=== PATIENT | male | born 1955 | race Caucasian/White ===

== ENCOUNTER 2017-01-14 15:03 | Inpatient (IN) | payer OTHER, MEDICARE, MEDICAID ==
[~2017-01-14] VITALS: Ht 167.6 cm; Wt 73.3 kg
--- NOTE | 2017-01-14 15:12 | NUR ---
Patient arrives to room [address] Gonsalez' office. Reports abdominal pain but is unable to rate. Ambulates to weight chair then bed with 1 assist. Patient's sister, Zora Holguin, who is his guardian is at bedside and conveys medical history. See admission for full assessment.
[2017-01-14] MEDS ORDERED: ONDANSETRON 2 MG/ML (Z0FRAN) 2 ML VIAL IV PRN (15:45)
[2017-01-14] MEDS ORDERED: BISACODYL 10 MG SUPP (DULCOLAX) PR PRN (15:45)
[2017-01-14] MEDS ORDERED: LORazepam 2 MG/ML (ATIVAN) 1 ML VIAL IV PRN (15:45)
[2017-01-14] MEDS ORDERED: PROMETHAZINE HCL INJ 25 MG in SODIUM CHLORIDE 25 ML IV PRN (15:45)
[2017-01-14] MEDS ORDERED: ARTIFICIAL TEARS (REFRESH) OPHTHALMIC DROPS OU PRN (15:45)
[2017-01-14] MEDS ORDERED: ALBUTEROL 0.083% NEB SOLUTION 2.5 MG/3 ML VIAL INH PRN (15:45)
[2017-01-14] MEDS ORDERED: SCOPOLAMINE 1.5 MG (TRANSDERM-SCOP) PATCH TD SCH (16:00)
[2017-01-14] MEDS ORDERED: morphine INJ 10 MG/ML 1 ML VIAL IV PRN (16:00)
[2017-01-14] MEDS ORDERED: NS FLUSH 3 ML PRN IV (16:05)
[2017-01-14] MEDS ORDERED: NS FLUSH 10 ML PRN IV (16:05)
[2017-01-14] MEDS ORDERED: ONDANSETRON 4 MG (ZOFRAN) TABLET PO PRN (16:15)
[2017-01-14] MEDS: morphine ORAL CONC 20 MG/ML (ROXANOL) 1 ML SYRINGE PO PRN (16:20)
--- NOTE | 2017-01-14 16:20 | NUR ---
PRN Ativan provided due to increased agitation and anxiety. Dr. Horne in room and attempting paracentesis. Patient's sister at bedside and provides positive reassurance. Will continue to monitor.
[2017-01-14] MEDS ORDERED: LORazepam ORAL CONCENTRATE 2 MG/ML (ATIVAN) SYR PO PRN (16:25)
[2017-01-14] MEDS ORDERED: ONDANSETRON 4 MG (ZOFRAN) ORAL DISSOLVE TAB PO PRN (16:25)
--- NOTE | 2017-01-14 16:25 | NUR ---
HOB elevated, Pt swallowed Zofran 4mg 2 tabs whole with sip of water without difficulty. Sister, Zora Holguin was at bedside. Pt started moaning after swallowing pills, then HOB lowered and he stopped moaning.
[2017-01-14 16:26] VITALS: BP 110/71
--- NOTE | 2017-01-14 16:54 | NUR ---
MED REC COMPLETE--current med list obtained from list provided by [facility] ([facility] [place]).
[2017-01-14] MEDS ORDERED: ACETAMINOPHEN 325 MG TAB (TYLENOL) PO PRN (17:15)
[2017-01-14] MEDS ORDERED: ACETAMINOPHEN 650 MG SUPP (TYLENOL) PR PRN (17:15)
--- NOTE | 2017-01-14 18:14 | NUR ---
Patient sleeping in bed. [facility] nurse Riya Vargas RN here. No apparent signs of pain or distress. Will continue to monitor.
--- NOTE | 2017-01-14 19:25 | NUR ---
Pt. resting quietly; resp are even and unlabored; distended abdomen noted; bed alarm on for safety. Pt. appears to be in no distress currently. Will continue to monitor.
--- NOTE | 2017-01-14 20:57 | NUR ---
Pt comfortably sleeping, no PRN interventions indicated
[2017-01-15] MEDS: morphine ORAL CONC 20 MG/ML (ROXANOL) 1 ML SYRINGE PO PRN ×2 (00:01→07:11)
--- NOTE | 2017-01-15 00:01 | NUR ---
Roxanol 10 mg PO given for facial expression of discomfort; general restlessness. Resp are even and unlabored on room air; abd. firm and distended; bed alarm on for safety.
--- NOTE | 2017-01-15 04:49 | NUR ---
Pt. checked for incontinence; pt. dry. Pt. responds with opening eyes or turning head when spoken to; appears to be in no distress currently; resp are even and unlabored on room air; bed alarm on for safety.
--- NOTE | 2017-01-15 07:15 | NUR ---
Roxanol 20 mg PO given for pain; pt. woke up suddenly-shouting and moaning. Warm blanket provided for comfort as pt. sat at bedside. Pt. pivots with assist x 2 and use of gait belt to bedside commode; heavy incontinent void plus 200 cc's measured output. Abdomen remains very distended. Pt. anxious; much reassurance given by this RN and oncoming R[facility]. Bed and pressure alarm on for safety.
--- NOTE | 2017-01-15 07:30 | NUR ---
Pt. resting much quieter at this time; cartoons on tv; resp are even and unlabored on room air.
--- NOTE | 2017-01-15 08:04 | NUR ---
NUTRITION ASSESSMENT Level 1 Patient: Osito Quigley Age/Sex: 62/M Date Screened: 01-15-17 Weight: 161.2#/73.3 kg Height: 66 inches Primary Diagnosis: liver failure Diet Order: mechanical soft Relevant labs: N/A Food allergies: N Nutrition Assessment Criteria Age over 80: N Body Mass Index (BMI) under 19: N Admission Screening Indicates Risk? 3 points Moderate/High Risk Diagnosis: 6 points TPN or PPN: N NPO or clear liquid diet: N Serum Glucose <70 or >180: N/A Hgb A1c >6.7: N/A Total: 9 points Risk Screen: __ Patient at low nutritional risk based on available data; reevaluate in 5-7 days __ Patient at moderate nutritional risk based on available data; reevaluate in 3-5 days __ Patient at high nutritional risk; complete Nutrition Assessment within 48 hours of admission. Comments: Patient is at high nutritional risk but is on Hospice for his liver failure; due to comfort care measures only, will hold off on full nutrition assessment/intervention unless status changes. Will provide mechanical soft diet for patients safety in swallowing, otherwise, do not recommend further dietary restrictions in order to increase pleasure from food. Noted likely DC back home this morning with Hospice.
[2017-01-15] MEDS ORDERED: NS FLUSH 3 ML DAILY IV SCH (09:00)
--- NOTE | 2017-01-15 10:29 | NUR ---
Pt. to discharge back to [facility] today to continue hospice care through [facility]. Transportation will be here between 10:45-11:00 to [employer] pickle [employer] Pt. SUKHWINDER has contacted Pt. sister to update her on Pt. discharge plans.
--- NOTE | 2017-01-15 11:05 | NUR ---
Called report to Fiona at [facility]. Informed her of last Roxanol dose and placement of scopalamine patch.
[2017-01-17] MEDS ORDERED: [UNRECOGNIZED DRUG - REMARK] TOP SCH (15:59)
== END 2017-01-15 10:55 | disposition hospice, inpatient (51) | DRG 433 ==
LOC: MED/SURG 15:03 → INTOOBSV 15:03 → UNDOADMOB 15:03 → INTOOBSV 15:05 → MED/SURG 15:05 → OBSVTOIN 15:05
PROVIDERS: ADMIT Internal Medicine; ATTEND Internal Medicine
DX: K74.60 Unspecified cirrhosis of liver (principal); B19.10 Unspecified viral hepatitis B without hepatic coma; R18.8 Other ascites; Z51.5 Encounter for palliative care; Z66 Do not resuscitate; E11.43 Type 2 diabetes mellitus with diabetic autonomic (poly)neuropathy; E11.21 Type 2 diabetes mellitus with diabetic nephropathy; K31.84 Gastroparesis; Q90.9 Down syndrome, unspecified; F41.9 Anxiety disorder, unspecified; K59.00 Constipation, unspecified; Z79.4 Long term (current) use of insulin